=== PATIENT | male | born 1995 | race Caucasian/White ===

== ENCOUNTER 2017-03-06 11:48 | Emergency (ER) | payer BC ==
[2017-03-06] MEDS: ONDANSETRON 4 MG INJ IV ×2 (12:42→13:23)
[2017-03-06] MEDS: FAMOTIDINE 20 MG INJ IV (12:42)
[2017-03-06] MEDS: SOD CHLORIDE 0.9% 1,000 ML IV (12:44)
[2017-03-06] MEDS: LIDOCAINE/MYLANTA 40 ML BTL PO (12:49)
[2017-03-06 13:12] LABS: ADD MAN DIFF? NO
[2017-03-06 13:15] LABS: BASOPHILS % 0.4 % (0.0-2.0); EOSINOPHILS % 0.3 % (0.0-7.0); HEMATOCRIT 49.9 % (42.0-52.0); HEMOGLOBIN 17.1 g/dl (14.0-18.0); LYMPHOCYTES # 1.1 10^3/ul (0.8-2.9); LYMPHOCYTES % 11.3 % (18.0-55.0); MEAN CORPUSCULAR HEMOGLOBIN 29.4 pg (29.0-33.0); MEAN CORPUSCULAR HGB CONC 34.3 g/dl (32.0-37.0); MEAN CORPUSCULAR VOLUME 85.7 fl (72.0-104.0); MEAN PLATELET VOLUME 10.3 fl (7.4-10.4); MONOCYTE # 0.3 10^3/ul (0.3-0.9); MONOCYTES % 3.5 % (0.0-13.0); NEUTROPHIL # 8.1 10^3/ul (1.6-7.5); NEUTROPHILS % 83.8 % (30.0-74.0); PLATELET COUNT 257 10^3/UL (140-415); RED BLOOD COUNT 5.82 10^6/ul (4.70-6.10); RED CELL DISTRIBUTION WIDTH 11.9 % (11.5-14.5)
[2017-03-06 13:15] LABS: WHITE BLOOD COUNT 9.7 10^3/ul (4.8-10.8)
[2017-03-06 13:22] LABS: ADD UMIC NO; UR ASCORBIC ACID NEGATIVE (NEGATIVE); UR BILIRUBIN (Dip) NEGATIVE (NEGATIVE); UR BLOOD (Dip) NEGATIVE (NEGATIVE); UR CLARITY CLEAR (CLEAR); UR COLOR YELLOW (YELLOW); UR GLUCOSE (Dip) NEGATIVE (NEGATIVE); UR KETONES (Dip) NEGATIVE (NEGATIVE); UR LEUKOCYTE ESTERASE (Dip) NEGATIVE Leu/ul (NEGATIVE); UR NITRITE (Dip) NEGATIVE (NEGATIVE); UR SPECIFIC GRAVITY (Dip) 1.024 (1.003-1.030); UR TOTAL PROTEIN (Dip) NEGATIVE (NEGATIVE); UR UROBILINOGEN (Dip) NEGATIVE (NEGATIVE)
[2017-03-06] MEDS: HYDROmorphONE 1 MG/ML SYG IV (13:23)
[2017-03-06 13:33] LABS: ALANINE AMINOTRANSFERASE 87 IU/L (13-69); ALBUMIN 5.2 g/dl (3.3-4.9); ALBUMIN/GLOBULIN RATIO 1.67; ALKALINE PHOSPHATASE 91 IU/L (42-121); ANION GAP 23 (8-16); ASPARTATE AMINO TRANSFERASE 41 IU/L (15-46); BILIRUBIN,INDIRECT 1.1 mg/dl (0-1.1); BILIRUBIN,TOTAL 1.1 mg/dl (0.2-1.3); BLOOD UREA NITROGEN 13 mg/dl (7-20); CALCIUM 9.8 mg/dl (8.4-10.2); CARBON DIOXIDE 24 mmol/L (21-31); CHLORIDE 103 mmol/L (97-110); CREATININE 0.86 mg/dl (0.61-1.24); GLUCOSE 137 mg/dl (70-220); LIPASE 526 U/L (23-300); POTASSIUM 4.2 mmol/L (3.5-5.1); SODIUM 146 mmol/L (135-144); TOTAL PROTEIN 8.3 g/dl (6.1-8.1)
[2017-03-06] MEDS: METOCLOPRAMIDE 10 MG INJ IV (14:53)
[2017-03-06] MEDS: DIPHENHYDRAMINE 50 MG INJ IV (14:54)
== END 2017-03-06 15:23 | disposition home or self-care (01) ==
LOC: FTE 11:48
DX: R10.13 Epigastric pain (principal); R10.11 Right upper quadrant pain; E66.01 Morbid (severe) obesity due to excess calories; R11.2 Nausea with vomiting, unspecified
CPT/HCPCS: 36415; 74176; 80053; 81003; 83690; 85025; 96374; 96375; 96376; 99285-25

== ENCOUNTER 2017-03-08 06:37 | Observation (INO) | payer BC ==
[2017-03-08] MEDS: METOCLOPRAMIDE 10 MG INJ IV ×2 (08:07→17:53)
[2017-03-08] MEDS: FAMOTIDINE 20 MG INJ IV ×2 (08:07→20:49)
[2017-03-08] MEDS: HYDROmorphONE 1 MG/ML SYG IV (08:07)
[2017-03-08] MEDS: SOD CHLORIDE 0.9% 1,000 ML IV ×3 (08:08→15:05)
[2017-03-08 08:28] LABS: ADD MAN DIFF? NO
[2017-03-08 08:39] LABS: ADD UMIC YES; UR ASCORBIC ACID NEGATIVE (NEGATIVE); UR BILIRUBIN (Dip) NEGATIVE (NEGATIVE); UR BLOOD (Dip) NEGATIVE (NEGATIVE); UR CLARITY CLEAR (CLEAR); UR COLOR YELLOW (YELLOW); UR GLUCOSE (Dip) NEGATIVE (NEGATIVE); UR KETONES (Dip) 1+ mg/dL (NEGATIVE); UR LEUKOCYTE ESTERASE (Dip) NEGATIVE Leu/ul (NEGATIVE); UR MUCUS FEW /HPF (NONE SEEN); UR NITRITE (Dip) NEGATIVE (NEGATIVE); UR RBC 1 /HPF (0-5); UR TOTAL PROTEIN (Dip) 1+ mg/dl (NEGATIVE); UR UROBILINOGEN (Dip) 2+ mg/dL (NEGATIVE); UR WBC 3 /HPF (0-5)
[2017-03-08 08:40] LABS: WHITE BLOOD COUNT 10.7 10^3/ul (4.8-10.8)
[2017-03-08 08:40] LABS: BASOPHILS % 0.4 % (0.0-2.0); EOSINOPHILS % 0.3 % (0.0-7.0); HEMATOCRIT 49.5 % (42.0-52.0); HEMOGLOBIN 16.9 g/dl (14.0-18.0); LYMPHOCYTES # 1.3 10^3/ul (0.8-2.9); LYMPHOCYTES % 12.1 % (18.0-55.0); MEAN CORPUSCULAR HEMOGLOBIN 29.2 pg (29.0-33.0); MEAN CORPUSCULAR HGB CONC 34.1 g/dl (32.0-37.0); MEAN CORPUSCULAR VOLUME 85.5 fl (72.0-104.0); MEAN PLATELET VOLUME 10.1 fl (7.4-10.4); MONOCYTE # 0.8 10^3/ul (0.3-0.9); MONOCYTES % 7.5 % (0.0-13.0); NEUTROPHIL # 8.5 10^3/ul (1.6-7.5); NEUTROPHILS % 79.2 % (30.0-74.0); PLATELET COUNT 272 10^3/UL (140-415); RED BLOOD COUNT 5.79 10^6/ul (4.70-6.10); RED CELL DISTRIBUTION WIDTH 12.1 % (11.5-14.5)
[2017-03-08 08:53] LABS: ALANINE AMINOTRANSFERASE 84 IU/L (13-69); ALBUMIN/GLOBULIN RATIO 1.35; ALKALINE PHOSPHATASE 82 IU/L (42-121); AMYLASE 180 U/L (11-123); ANION GAP 21 (8-16); ASPARTATE AMINO TRANSFERASE 39 IU/L (15-46); BLOOD UREA NITROGEN 20 mg/dl (7-20); CALCIUM 10.1 mg/dl (8.4-10.2); CARBON DIOXIDE 29 mmol/L (21-31); CHLORIDE 99 mmol/L (97-110); CREATININE 1.04 mg/dl (0.61-1.24); GLUCOSE 124 mg/dl (70-220); LIPASE 560 U/L (23-300); POTASSIUM 3.7 mmol/L (3.5-5.1); SODIUM 145 mmol/L (135-144); TOTAL PROTEIN 8.7 g/dl (6.1-8.1)
[2017-03-08] MEDS: ONDANSETRON 4 MG INJ IV ×2 (10:15→11:14)
[2017-03-08] MEDS: LORAZEPAM 2 MG INJ IV (10:30)
[2017-03-08] MEDS: LIDOCAINE/MYLANTA 40 ML BTL PO (11:15)
[2017-03-08] MEDS: BELLADONNA/PHENOBARBITAL TAB PO (11:15)
[2017-03-08] MEDS ORDERED: ACETAMINOPHEN 325 MG TAB PO (13:00)
[2017-03-08] MEDS ORDERED: ONDANSETRON 4 MG INJ IV ×2 (13:00→14:00)
[2017-03-08] MEDS: HYDROCODONE/APAP (5/325) TAB PO (15:15)
== END 2017-03-08 22:05 | disposition left against medical advice (07) ==
LOC: FTE 06:37 → MS2 12:46
DX: R10.13 Epigastric pain (principal); R11.2 Nausea with vomiting, unspecified; Z90.49 Acquired absence of other specified parts of digestive tract
CPT/HCPCS: 36415; 76705; 80053; 81001; 82150; 83690; 85025; 96361; 96374; 96375; 96376; 99285-25

== ENCOUNTER 2017-04-02 13:51 | Inpatient (IN) | payer BC ==
[2017-04-02] MEDS ORDERED: ACETAMINOPHEN 325 MG TAB PO (15:00)
[2017-04-02] MEDS ORDERED: NACL 0.9% 3 ML SYG IV (15:00)
[2017-04-02] MEDS ORDERED: ONDANSETRON 4 MG TAB PO (15:30)
[2017-04-02] MEDS: SOD CHLORIDE 0.9% 1,000 ML IV ×2 (15:47→22:56)
[2017-04-02] MEDS: ONDANSETRON 4 MG INJ IV (16:00)
[2017-04-02] MEDS ORDERED: traMADol 50 MG TAB PO (16:00)
[2017-04-02] MEDS: morphine 2 MG INJ IV (16:01)
[2017-04-02] MEDS: SUCRALFATE (100 MG/ML) 10ML CUP PO ×2 (18:26→21:11)
[2017-04-02] MEDS: PANTOPRAZOLE (EC) 40 MG TAB PO (18:26)
[2017-04-03 05:53] LABS: ADD MAN DIFF? NO
[2017-04-03 06:03] LABS: BASOPHILS % 0.3 % (0.0-2.0); EOSINOPHILS # 0.1 10^3/ul (0.0-0.5); EOSINOPHILS % 0.8 % (0.0-7.0); HEMATOCRIT 43.8 % (42.0-52.0); HEMOGLOBIN 14.9 g/dl (14.0-18.0); LYMPHOCYTES # 1.5 10^3/ul (0.8-2.9); LYMPHOCYTES % 24.7 % (15.0-51.0); MEAN CORPUSCULAR HEMOGLOBIN 29.3 pg (29.0-33.0); MEAN CORPUSCULAR VOLUME 86.2 fl (82.0-101.0); MEAN PLATELET VOLUME 9.9 fl (7.4-10.4); MONOCYTE # 0.6 10^3/ul (0.3-0.9); MONOCYTES % 9.6 % (0.0-11.0); NEUTROPHIL # 3.8 10^3/ul (1.6-7.5); NEUTROPHILS % 63.9 % (39.0-77.0); PLATELET COUNT 213 10^3/UL (140-415); RED BLOOD COUNT 5.08 10^6/ul (4.70-6.10); RED CELL DISTRIBUTION WIDTH 11.9 % (11.5-14.5)
[2017-04-03] MEDS: PANTOPRAZOLE (EC) 40 MG TAB PO ×2 (06:11→17:28)
[2017-04-03] MEDS: SOD CHLORIDE 0.9% 1,000 ML IV ×2 (06:12→15:00)
[2017-04-03 06:33] LABS: ALANINE AMINOTRANSFERASE 70 IU/L (13-69); ALBUMIN 4.2 g/dl (3.3-4.9); ALKALINE PHOSPHATASE 67 IU/L (42-121); ASPARTATE AMINO TRANSFERASE 23 IU/L (15-46); BILIRUBIN,INDIRECT 1.9 mg/dl (0-1.1); BILIRUBIN,TOTAL 1.9 mg/dl (0.2-1.3); TOTAL PROTEIN 6.7 g/dl (6.1-8.1)
[2017-04-03 06:37] LABS: ANION GAP 16 (8-16); BLOOD UREA NITROGEN 12 mg/dl (7-20); CALCIUM 9.3 mg/dl (8.4-10.2); CARBON DIOXIDE 28 mmol/L (21-31); CHLORIDE 103 mmol/L (97-110); CREATININE 0.91 mg/dl (0.61-1.24); GLUCOSE 80 mg/dl (70-220); MAGNESIUM 1.7 mg/dl (1.7-2.5); PHOSPHORUS 3.3 mg/dl (2.5-4.9); POTASSIUM 3.8 mmol/L (3.5-5.1); SODIUM 143 mmol/L (135-144)
[2017-04-03] MEDS: SUCRALFATE (100 MG/ML) 10ML CUP PO ×3 (08:27→17:28)
[2017-04-03] MEDS: ENOXAPARIN 40 MG/0.4 ML SYG SC (08:29)
[2017-04-04] MEDS ORDERED: INFLUENZA VIRUS VACCINE 0.5 ML (DISPENSING) IM* (09:00)
== END 2017-04-03 18:24 | disposition home or self-care (01) | DRG 392 ==
LOC: PP2 13:51
DX: R11.2 Nausea with vomiting, unspecified (principal); F12.90 Cannabis use, unspecified, uncomplicated; K29.70 Gastritis, unspecified, without bleeding
CPT/HCPCS: 80048; 80076; 83735; 84100; 84443; 85025

== ENCOUNTER 2017-05-23 21:20 | Inpatient (IN) | payer BC ==
[2017-05-23] MEDS ORDERED: DOCUSATE SODIUM 100 MG CAP PO (22:00)
[2017-05-23] MEDS ORDERED: ACETAMINOPHEN 325 MG TAB PO (22:00)
[2017-05-23] MEDS ORDERED: BISACODYL (EC) 5 MG TAB PO (22:00)
[2017-05-23] MEDS ORDERED: NACL 0.9% 3 ML SYG IV (22:00)
[2017-05-23 22:17] LABS: ADD MAN DIFF? NO
[2017-05-23 22:19] LABS: BASOPHILS % 0.2 % (0.0-2.0); HEMATOCRIT 46.8 % (42.0-52.0); HEMOGLOBIN 16.2 g/dl (14.0-18.0); LYMPHOCYTES # 0.7 10^3/ul (0.8-2.9); LYMPHOCYTES % 6.7 % (15.0-51.0); MEAN CORPUSCULAR HEMOGLOBIN 29.1 pg (29.0-33.0); MEAN CORPUSCULAR HGB CONC 34.6 g/dl (32.0-37.0); MEAN PLATELET VOLUME 9.4 fl (7.4-10.4); MONOCYTE # 0.3 10^3/ul (0.3-0.9); NEUTROPHIL # 9.2 10^3/ul (1.6-7.5); NEUTROPHILS % 89.8 % (39.0-77.0); PLATELET COUNT 240 10^3/UL (140-415); RED BLOOD COUNT 5.57 10^6/ul (4.70-6.10); RED CELL DISTRIBUTION WIDTH 12.4 % (11.5-14.5)
[2017-05-23 22:19] LABS: WHITE BLOOD COUNT 10.2 10^3/ul (4.8-10.8)
[2017-05-23] MEDS: SOD CHLORIDE 0.9% 1,000 ML IV (22:23)
[2017-05-23] MEDS: morphine 2 MG INJ IV (22:23)
[2017-05-23] MEDS: METOCLOPRAMIDE 10 MG INJ IV (22:27)
[2017-05-23 22:41] LABS: ALANINE AMINOTRANSFERASE 79 IU/L (13-69); ALBUMIN 5.2 g/dl (3.3-4.9); ALBUMIN/GLOBULIN RATIO 1.48; ALKALINE PHOSPHATASE 81 IU/L (42-121); ANION GAP 21 (8-16); ASPARTATE AMINO TRANSFERASE 32 IU/L (15-46); BILIRUBIN,INDIRECT 1.8 mg/dl (0-1.1); BILIRUBIN,TOTAL 1.8 mg/dl (0.2-1.3); BLOOD UREA NITROGEN 12 mg/dl (7-20); CARBON DIOXIDE 27 mmol/L (21-31); CHLORIDE 103 mmol/L (97-110); GLUCOSE 126 mg/dl (70-220); POTASSIUM 4.7 mmol/L (3.5-5.1); SODIUM 146 mmol/L (135-144); TOTAL PROTEIN 8.7 g/dl (6.1-8.1)
[2017-05-24] MEDS: ONDANSETRON 4 MG INJ IV (01:41)
[2017-05-24 05:16] LABS: ADD MAN DIFF? NO
[2017-05-24 05:19] LABS: BASOPHILS % 0.1 % (0.0-2.0); HEMATOCRIT 45.2 % (42.0-52.0); HEMOGLOBIN 15.6 g/dl (14.0-18.0); LYMPHOCYTES # 0.8 10^3/ul (0.8-2.9); LYMPHOCYTES % 8.8 % (15.0-51.0); MEAN CORPUSCULAR HGB CONC 34.5 g/dl (32.0-37.0); MONOCYTE # 0.6 10^3/ul (0.3-0.9); MONOCYTES % 6.5 % (0.0-11.0); NEUTROPHILS % 84.2 % (39.0-77.0); PLATELET COUNT 249 10^3/UL (140-415); RED BLOOD COUNT 5.38 10^6/ul (4.70-6.10); RED CELL DISTRIBUTION WIDTH 12.6 % (11.5-14.5)
[2017-05-24 05:19] LABS: WHITE BLOOD COUNT 9.6 10^3/ul (4.8-10.8)
[2017-05-24 05:41] LABS: ALANINE AMINOTRANSFERASE 69 IU/L (13-69); ALBUMIN/GLOBULIN RATIO 1.85; ALKALINE PHOSPHATASE 66 IU/L (42-121); ANION GAP 23 (8-16); ASPARTATE AMINO TRANSFERASE 24 IU/L (15-46); BILIRUBIN,INDIRECT 1.7 mg/dl (0-1.1); BILIRUBIN,TOTAL 1.7 mg/dl (0.2-1.3); BLOOD UREA NITROGEN 14 mg/dl (7-20); CALCIUM 9.8 mg/dl (8.4-10.2); CARBON DIOXIDE 26 mmol/L (21-31); CHLORIDE 104 mmol/L (97-110); CREATININE 0.92 mg/dl (0.61-1.24); GLUCOSE 124 mg/dl (70-220); MAGNESIUM 1.7 mg/dl (1.7-2.5); POTASSIUM 4.1 mmol/L (3.5-5.1); SODIUM 149 mmol/L (135-144); TOTAL PROTEIN 7.7 g/dl (6.1-8.1)
[2017-05-24] MEDS: PANTOPRAZOLE 40 MG INJ IV (05:41)
[2017-05-24] MEDS: SOD CHLORIDE 0.9% 1,000 ML IV (07:29)
[2017-05-24] MEDS: METOCLOPRAMIDE 10 MG INJ IV (07:47)
[2017-05-24] MEDS: morphine 2 MG INJ IV (07:48)
[2017-05-24 08:06] LABS: LIPASE 37 U/L (23-300)
[2017-05-24] MEDS ORDERED: NON-FORMULARY/PATIENT OWN MED (Omeprazole* 20 MG) PO (09:00)
[2017-05-24 09:31] LABS: ADD UMIC YES; UR ASCORBIC ACID 40 mg/dL (NEGATIVE); UR BILIRUBIN (Dip) NEGATIVE (NEGATIVE); UR BLOOD (Dip) NEGATIVE (NEGATIVE); UR CLARITY SLIGHTLY CLOUDY (CLEAR); UR COLOR YELLOW (YELLOW); UR GLUCOSE (Dip) NEGATIVE (NEGATIVE); UR KETONES (Dip) 2+ mg/dL (NEGATIVE); UR LEUKOCYTE ESTERASE (Dip) NEGATIVE Leu/ul (NEGATIVE); UR MUCUS MANY /HPF (NONE SEEN); UR NITRITE (Dip) NEGATIVE (NEGATIVE); UR RBC 11 /HPF (0-5); UR SPECIFIC GRAVITY (Dip) 1.034 (1.003-1.030); UR TOTAL PROTEIN (Dip) 2+ mg/dl (NEGATIVE); UR UROBILINOGEN (Dip) 1+ mg/dL (NEGATIVE); UR WBC 16 /HPF (0-5)
[2017-05-24 09:33] LABS: AMPHETAMINE/METHAMPHETAMINE Negative (NEGATIVE); BARBITURATES Negative (NEGATIVE); BENZODIAZEPINES Negative (NEGATIVE); CANNABINOIDS Positive (NEGATIVE); COCAINE Negative (NEGATIVE); OPIATES Positive (NEGATIVE)
== END 2017-05-24 18:55 | disposition home or self-care (01) | DRG 897 ==
LOC: MS1 21:20
DX: F12.188 Cannabis abuse with other cannabis-induced disorder (principal); F41.9 Anxiety disorder, unspecified; R11.2 Nausea with vomiting, unspecified
CPT/HCPCS: 80053; 80307; 81001; 83690; 83735; 85025

== ENCOUNTER 2017-06-08 15:01 | Emergency (ER) | payer BC ==
[2017-06-08] MEDS: ONDANSETRON (ODT) 4 MG TAB ODT (16:08)
[2017-06-08] MEDS: LIDOCAINE/MYLANTA 40 ML BTL PO (16:08)
[2017-06-08 16:33] LABS: ADD MAN DIFF? NO
[2017-06-08] MEDS: ONDANSETRON 4 MG INJ IV (16:33)
[2017-06-08] MEDS: METOCLOPRAMIDE 10 MG INJ IV (16:33)
[2017-06-08] MEDS: SOD CHLORIDE 0.9% 1,000 ML IV (16:33)
[2017-06-08 16:37] LABS: BASOPHILS % 0.3 % (0.0-2.0); HEMATOCRIT 48.5 % (42.0-52.0); HEMOGLOBIN 16.7 g/dl (14.0-18.0); LYMPHOCYTES # 0.8 10^3/ul (0.8-2.9); LYMPHOCYTES % 7.9 % (15.0-51.0); MEAN CORPUSCULAR HEMOGLOBIN 29.3 pg (29.0-33.0); MEAN CORPUSCULAR HGB CONC 34.4 g/dl (32.0-37.0); MEAN CORPUSCULAR VOLUME 85.1 fl (82.0-101.0); MONOCYTE # 0.3 10^3/ul (0.3-0.9); MONOCYTES % 3.1 % (0.0-11.0); NEUTROPHIL # 9.3 10^3/ul (1.6-7.5); NEUTROPHILS % 88.2 % (39.0-77.0); PLATELET COUNT 259 10^3/UL (140-415); RED CELL DISTRIBUTION WIDTH 12.6 % (11.5-14.5)
[2017-06-08 16:37] LABS: WHITE BLOOD COUNT 10.6 10^3/ul (4.8-10.8)
[2017-06-08] MEDS: morphine 4 MG/ML VIAL IV (16:43)
[2017-06-08] MEDS: FAMOTIDINE 20 MG INJ IV (16:50)
[2017-06-08 16:51] LABS: ADD UMIC YES; UR ASCORBIC ACID NEGATIVE (NEGATIVE); UR BILIRUBIN (Dip) NEGATIVE (NEGATIVE); UR BLOOD (Dip) NEGATIVE (NEGATIVE); UR CLARITY SLIGHTLY CLOUDY (CLEAR); UR COLOR YELLOW (YELLOW); UR GLUCOSE (Dip) NEGATIVE (NEGATIVE); UR KETONES (Dip) TRACE mg/dL (NEGATIVE); UR LEUKOCYTE ESTERASE (Dip) NEGATIVE Leu/ul (NEGATIVE); UR MUCUS MANY /HPF (NONE SEEN); UR NITRITE (Dip) NEGATIVE (NEGATIVE); UR RBC 2 /HPF (0-5); UR SPECIFIC GRAVITY (Dip) 1.024 (1.003-1.030); UR TOTAL PROTEIN (Dip) 1+ mg/dl (NEGATIVE); UR UROBILINOGEN (Dip) NEGATIVE (NEGATIVE); UR WBC 1 /HPF (0-5)
[2017-06-08 17:01] LABS: ALANINE AMINOTRANSFERASE 84 IU/L (13-69); ALBUMIN 5.2 g/dl (3.3-4.9); ALBUMIN/GLOBULIN RATIO 1.67; ALKALINE PHOSPHATASE 83 IU/L (42-121); AMYLASE 112 U/L (11-123); ANION GAP 21 (8-16); ASPARTATE AMINO TRANSFERASE 40 IU/L (15-46); BILIRUBIN,INDIRECT 1.1 mg/dl (0-1.1); BILIRUBIN,TOTAL 1.1 mg/dl (0.2-1.3); BLOOD UREA NITROGEN 10 mg/dl (7-20); CALCIUM 10.3 mg/dl (8.4-10.2); CARBON DIOXIDE 28 mmol/L (21-31); CHLORIDE 105 mmol/L (97-110); CREATININE 0.91 mg/dl (0.61-1.24); GLUCOSE 129 mg/dl (70-220); LIPASE 263 U/L (23-300); POTASSIUM 4.2 mmol/L (3.5-5.1); SODIUM 150 mmol/L (135-144); TOTAL PROTEIN 8.3 g/dl (6.1-8.1)
[2017-06-08 17:18] LABS: BARBITURATES Negative (NEGATIVE); OPIATES Positive (NEGATIVE)
[2017-06-08 17:24] LABS: AMPHETAMINE/METHAMPHETAMINE Negative (NEGATIVE); BENZODIAZEPINES Positive (NEGATIVE); CANNABINOIDS Positive (NEGATIVE); COCAINE Negative (NEGATIVE)
== END 2017-06-08 18:01 | disposition home or self-care (01) ==
LOC: FTE 15:01
DX: K29.70 Gastritis, unspecified, without bleeding (principal)
CPT/HCPCS: 80053; 80307; 81001; 82150; 83690; 85025; 96374; 96375; 99284-25

== ENCOUNTER 2017-08-21 21:43 | Emergency (ER) | payer BC ==
[2017-08-21] MEDS: FAMOTIDINE 20 MG INJ IV (22:55)
[2017-08-21] MEDS: ONDANSETRON 4 MG INJ IV (22:55)
[2017-08-21] MEDS: SOD CHLORIDE 0.9% 1,000 ML IV (22:55)
[2017-08-21] MEDS: morphine 4 MG/ML VIAL IV (22:55)
[2017-08-21 23:19] LABS: ADD MAN DIFF? NO
[2017-08-21 23:20] LABS: WHITE BLOOD COUNT 10.1 10^3/ul (4.8-10.8)
[2017-08-21 23:20] LABS: BASOPHILS % 0.3 % (0.0-2.0); EOSINOPHILS % 0.1 % (0.0-7.0); HEMATOCRIT 47.9 % (42.0-52.0); HEMOGLOBIN 16.7 g/dl (14.0-18.0); LYMPHOCYTES # 1.9 10^3/ul (0.8-2.9); LYMPHOCYTES % 18.8 % (15.0-51.0); MEAN CORPUSCULAR HEMOGLOBIN 29.6 pg (29.0-33.0); MEAN CORPUSCULAR HGB CONC 34.9 g/dl (32.0-37.0); MEAN CORPUSCULAR VOLUME 84.8 fl (82.0-101.0); MEAN PLATELET VOLUME 9.9 fl (7.4-10.4); MONOCYTE # 0.9 10^3/ul (0.3-0.9); MONOCYTES % 8.8 % (0.0-11.0); NEUTROPHIL # 7.2 10^3/ul (1.6-7.5); NEUTROPHILS % 71.6 % (39.0-77.0); PLATELET COUNT 259 10^3/UL (140-415); RED BLOOD COUNT 5.65 10^6/ul (4.70-6.10)
[2017-08-21 23:39] LABS: ALANINE AMINOTRANSFERASE 63 IU/L (13-69); ALBUMIN 4.9 g/dl (3.3-4.9); ALBUMIN/GLOBULIN RATIO 1.48; ALKALINE PHOSPHATASE 79 IU/L (42-121); ANION GAP 16 (8-16); ASPARTATE AMINO TRANSFERASE 26 IU/L (15-46); BILIRUBIN,INDIRECT 2.4 mg/dl (0-1.1); BILIRUBIN,TOTAL 2.4 mg/dl (0.2-1.3); BLOOD UREA NITROGEN 13 mg/dl (7-20); CALCIUM 9.9 mg/dl (8.4-10.2); CARBON DIOXIDE 30 mmol/L (21-31); CHLORIDE 101 mmol/L (97-110); CREATININE 0.94 mg/dl (0.61-1.24); GLUCOSE 123 mg/dl (70-220); LIPASE 1318 U/L (23-300); POTASSIUM 3.7 mmol/L (3.5-5.1); SODIUM 143 mmol/L (135-144); TOTAL PROTEIN 8.2 g/dl (6.1-8.1)
[2017-08-22] MEDS: HYDROmorphONE 0.5 MG/0.5 ML SYG IV (00:06)
[2017-08-22] MEDS: SOD CHLORIDE 0.9% 100 ML (01:11)
[2017-08-22] MEDS: IOHEXOL 300MG/ML 150 ML BTL (01:11)
[2017-08-22 02:14] LABS: ADD UMIC NO; UR ASCORBIC ACID NEGATIVE (NEGATIVE); UR BILIRUBIN (Dip) NEGATIVE (NEGATIVE); UR BLOOD (Dip) NEGATIVE (NEGATIVE); UR CLARITY CLEAR (CLEAR); UR COLOR YELLOW (YELLOW); UR GLUCOSE (Dip) NEGATIVE (NEGATIVE); UR KETONES (Dip) 2+ mg/dL (NEGATIVE); UR LEUKOCYTE ESTERASE (Dip) NEGATIVE Leu/ul (NEGATIVE); UR NITRITE (Dip) NEGATIVE (NEGATIVE); UR SPECIFIC GRAVITY (Dip) 1.024 (1.003-1.030); UR TOTAL PROTEIN (Dip) NEGATIVE (NEGATIVE); UR UROBILINOGEN (Dip) 1+ mg/dL (NEGATIVE)
== END 2017-08-22 02:20 | disposition left against medical advice (07) ==
LOC: FTE 21:43
DX: K85.90 Acute pancreatitis without necrosis or infection, unspecified (principal); R10.2 Pelvic and perineal pain
CPT/HCPCS: 36415; 74177; 76705; 80053; 81003; 83690; 85025; 96374; 96375; 99285-25

== ENCOUNTER 2017-11-02 11:39 | Day surgery (SDC) | payer BC | END 2017-11-02 16:02 | disposition home or self-care (01) | LOC: GIL 11:39 | DX: K29.70 Gastritis, unspecified, without bleeding (principal); B96.81 Helicobacter pylori [H. pylori] as the cause of diseases classified elsewhere; F17.200 Nicotine dependence, unspecified, uncomplicated | CPT/HCPCS: 43239; 88305; 88312 ==

== ENCOUNTER 2017-11-09 15:04 | Emergency (ER) | payer BC ==
[2017-11-09] MEDS: ONDANSETRON (ODT) 4 MG TAB ODT (15:46)
[2017-11-09] MEDS: LIDOCAINE/MYLANTA 40 ML BTL PO (15:46)
== END 2017-11-09 17:36 | disposition home or self-care (01) ==
LOC: FTE 15:04
DX: K29.50 Unspecified chronic gastritis without bleeding (principal); B96.81 Helicobacter pylori [H. pylori] as the cause of diseases classified elsewhere; F17.210 Nicotine dependence, cigarettes, uncomplicated
CPT/HCPCS: 99283; Z7502

== ENCOUNTER 2017-12-29 11:11 | Emergency (ER) | payer BC ==
[2017-12-29] MEDS: ONDANSETRON 4 MG INJ IV (11:58)
[2017-12-29] MEDS: FAMOTIDINE 20 MG INJ IV (11:58)
[2017-12-29] MEDS: HYDROmorphONE 1 MG/ML SYG IV (11:58)
[2017-12-29] MEDS: LIDOCAINE/MYLANTA 40 ML BTL PO (11:58)
[2017-12-29] MEDS: SOD CHLORIDE 0.9% 1,000 ML IV ×2 (11:59→13:54)
[2017-12-29 12:01] LABS: ADD MAN DIFF? NO
[2017-12-29 12:09] LABS: WHITE BLOOD COUNT 10.1 10^3/ul (4.8-10.8)
[2017-12-29 12:09] LABS: BASOPHILS % 0.3 % (0.0-2.0); HEMATOCRIT 49.8 % (42.0-52.0); LYMPHOCYTES # 0.7 10^3/ul (0.8-2.9); LYMPHOCYTES % 7.1 % (15.0-51.0); MEAN CORPUSCULAR HEMOGLOBIN 29.4 pg (29.0-33.0); MEAN CORPUSCULAR HGB CONC 34.1 g/dl (32.0-37.0); MEAN CORPUSCULAR VOLUME 86.2 fl (82.0-101.0); MONOCYTE # 0.3 10^3/ul (0.3-0.9); NEUTROPHIL # 9.1 10^3/ul (1.6-7.5); NEUTROPHILS % 89.3 % (39.0-77.0); PLATELET COUNT 263 10^3/UL (140-415); RED BLOOD COUNT 5.78 10^6/ul (4.70-6.10)
[2017-12-29 12:18] LABS: ADD UMIC YES; UR ASCORBIC ACID 40 mg/dL (NEGATIVE); UR BILIRUBIN (Dip) NEGATIVE (NEGATIVE); UR BLOOD (Dip) NEGATIVE (NEGATIVE); UR CLARITY CLOUDY (CLEAR); UR COLOR YELLOW (YELLOW); UR GLUCOSE (Dip) NEGATIVE (NEGATIVE); UR KETONES (Dip) 1+ mg/dL (NEGATIVE); UR LEUKOCYTE ESTERASE (Dip) NEGATIVE Leu/ul (NEGATIVE); UR MUCUS MODERATE /HPF (NONE SEEN); UR NITRITE (Dip) NEGATIVE (NEGATIVE); UR RBC 2 /HPF (0-5); UR SPECIFIC GRAVITY (Dip) 1.029 (1.003-1.030); UR TOTAL PROTEIN (Dip) NEGATIVE (NEGATIVE); UR UROBILINOGEN (Dip) NEGATIVE (NEGATIVE); UR WBC 3 /HPF (0-5)
[2017-12-29 12:31] LABS: ALANINE AMINOTRANSFERASE 69 IU/L (13-69); ALBUMIN 5.2 g/dl (3.3-4.9); ALKALINE PHOSPHATASE 84 IU/L (42-121); ANION GAP 13 (5-13); ASPARTATE AMINO TRANSFERASE 36 IU/L (15-46); BILIRUBIN,INDIRECT 1.8 mg/dl (0-1.1); BILIRUBIN,TOTAL 1.8 mg/dl (0.2-1.3); BLOOD UREA NITROGEN 14 mg/dl (7-20); CALCIUM 10.1 mg/dl (8.4-10.2); CARBON DIOXIDE 24 mmol/L (21-31); CHLORIDE 107 mmol/L (97-110); CREATININE 0.74 mg/dl (0.61-1.24); Estimated GFR > 60 mL/min (>60); GLUCOSE 130 mg/dl (70-220); LIPASE 212 U/L (23-300); POTASSIUM 3.9 mmol/L (3.5-5.1); SODIUM 144 mmol/L (135-144); TOTAL PROTEIN 8.9 g/dl (6.1-8.1)
[2017-12-29] MEDS: METOCLOPRAMIDE 10 MG INJ IV (13:49)
[2017-12-29] MEDS: RANITIDINE 150 MG TAB PO (13:58)
[2017-12-29] MEDS: DEXAMETHASONE 4 MG/ML 1 ML INJ IV (16:04)
[2017-12-29] MEDS: PROMETHAZINE 25 MG TAB PO (16:04)
[2017-12-29] MEDS ORDERED: NS + KCL 20 MEQ 1,000 ML IV (16:56)
[2017-12-29] MEDS ORDERED: ONDANSETRON 4 MG INJ IV (16:57)
[2017-12-29] MEDS ORDERED: ONDANSETRON (ODT) 4 MG TAB ODT (17:31)
[2017-12-29] MEDS: ONDANSETRON (ODT) 4 MG TAB ODT (17:37)
== END 2017-12-29 17:40 | disposition home or self-care (01) ==
LOC: FTE 11:11
DX: K21.9 Gastro-esophageal reflux disease without esophagitis (principal)
CPT/HCPCS: 36415; 76705; 80053; 81001; 83690; 85025; 87086; 96374; 96375; 99285-25

== ENCOUNTER 2017-12-31 06:26 | Emergency (ER) | payer BC ==
[2017-12-31] MEDS: SOD CHLORIDE 0.9% 1,000 ML IV (06:53)
[2017-12-31] MEDS: ONDANSETRON 4 MG INJ IV (06:53)
[2017-12-31] MEDS: morphine 4 MG/ML VIAL IV (06:53)
[2017-12-31] MEDS: LIDOCAINE/MYLANTA 40 ML BTL PO (07:06)
[2017-12-31 07:08] LABS: ADD MAN DIFF? NO
[2017-12-31 07:14] LABS: ADD UMIC NO; BASOPHILS % 0.4 % (0.0-2.0); EOSINOPHILS # 0.1 10^3/ul (0.0-0.5); EOSINOPHILS % 0.9 % (0.0-7.0); HEMATOCRIT 47.8 % (42.0-52.0); HEMOGLOBIN 16.3 g/dl (14.0-18.0); LYMPHOCYTES % 21.8 % (15.0-51.0); MEAN CORPUSCULAR HEMOGLOBIN 29.7 pg (29.0-33.0); MEAN CORPUSCULAR HGB CONC 34.1 g/dl (32.0-37.0); MEAN CORPUSCULAR VOLUME 87.2 fl (82.0-101.0); MEAN PLATELET VOLUME 9.9 fl (7.4-10.4); MONOCYTE # 0.8 10^3/ul (0.3-0.9); MONOCYTES % 8.9 % (0.0-11.0); NEUTROPHIL # 6.1 10^3/ul (1.6-7.5); NEUTROPHILS % 67.6 % (39.0-77.0); PLATELET COUNT 236 10^3/UL (140-415); RED BLOOD COUNT 5.48 10^6/ul (4.70-6.10); RED CELL DISTRIBUTION WIDTH 12.5 % (11.5-14.5); UR ASCORBIC ACID NEGATIVE (NEGATIVE); UR BILIRUBIN (Dip) NEGATIVE (NEGATIVE); UR BLOOD (Dip) NEGATIVE (NEGATIVE); UR CLARITY SLIGHTLY CLOUDY (CLEAR); UR COLOR YELLOW (YELLOW); UR GLUCOSE (Dip) NEGATIVE (NEGATIVE); UR KETONES (Dip) TRACE mg/dL (NEGATIVE); UR LEUKOCYTE ESTERASE (Dip) NEGATIVE Leu/ul (NEGATIVE); UR MUCUS MODERATE /HPF (NONE SEEN); UR NITRITE (Dip) NEGATIVE (NEGATIVE); UR RBC 1 /HPF (0-5); UR SPECIFIC GRAVITY (Dip) 1.021 (1.003-1.030); UR TOTAL PROTEIN (Dip) NEGATIVE (NEGATIVE); UR UROBILINOGEN (Dip) NEGATIVE (NEGATIVE); UR WBC 3 /HPF (0-5)
[2017-12-31] MEDS: FAMOTIDINE 20 MG INJ IV (07:47)
[2017-12-31] MEDS: HYDROmorphONE 0.5 MG/0.5 ML SYG IV (07:47)
[2017-12-31 08:17] LABS: ALANINE AMINOTRANSFERASE 62 IU/L (13-69); ALBUMIN 4.7 g/dl (3.3-4.9); ALBUMIN/GLOBULIN RATIO 1.42; ALKALINE PHOSPHATASE 69 IU/L (42-121); ANION GAP 12 (5-13); ASPARTATE AMINO TRANSFERASE 30 IU/L (15-46); BILIRUBIN,INDIRECT 1.8 mg/dl (0-1.1); BILIRUBIN,TOTAL 1.8 mg/dl (0.2-1.3); BLOOD UREA NITROGEN 17 mg/dl (7-20); CALCIUM 9.4 mg/dl (8.4-10.2); CARBON DIOXIDE 26 mmol/L (21-31); CHLORIDE 104 mmol/L (97-110); CREATININE 0.88 mg/dl (0.61-1.24); Estimated GFR > 60 mL/min (>60); GLUCOSE 121 mg/dl (70-220); LIPASE 433 U/L (23-300); POTASSIUM 3.4 mmol/L (3.5-5.1); SODIUM 142 mmol/L (135-144)
== END 2017-12-31 09:28 | disposition home or self-care (01) ==
LOC: FTE 06:26
DX: R10.13 Epigastric pain (principal); R11.10 Vomiting, unspecified; Z87.11 Personal history of peptic ulcer disease
CPT/HCPCS: 36415; 80053; 81001; 81003; 83690; 85025; 96361; 96374; 96375; 99284-25

== ENCOUNTER 2018-01-11 16:07 | Emergency (ER) | payer BC ==
[2018-01-11] MEDS: SOD CHLORIDE 0.9% 1,000 ML IV ×2 (17:14)
[2018-01-11] MEDS: ONDANSETRON 4 MG INJ IV ×2 (17:14→18:34)
[2018-01-11] MEDS: LORAZEPAM 2 MG INJ IV (17:14)
[2018-01-11] MEDS: PANTOPRAZOLE 40 MG INJ IV (17:14)
[2018-01-11 17:20] LABS: ADD MAN DIFF? NO
[2018-01-11 17:26] LABS: WHITE BLOOD COUNT 9.3 10^3/ul (4.8-10.8)
[2018-01-11 17:26] LABS: BASOPHILS % 0.2 % (0.0-2.0); EOSINOPHILS % 0.4 % (0.0-7.0); HEMATOCRIT 47.4 % (42.0-52.0); HEMOGLOBIN 16.1 g/dl (14.0-18.0); LYMPHOCYTES # 0.9 10^3/ul (0.8-2.9); LYMPHOCYTES % 9.1 % (15.0-51.0); MEAN CORPUSCULAR HEMOGLOBIN 29.3 pg (29.0-33.0); MEAN CORPUSCULAR VOLUME 86.2 fl (82.0-101.0); MEAN PLATELET VOLUME 9.7 fl (7.4-10.4); MONOCYTE # 0.5 10^3/ul (0.3-0.9); NEUTROPHIL # 7.9 10^3/ul (1.6-7.5); NEUTROPHILS % 84.5 % (39.0-77.0); PLATELET COUNT 224 10^3/UL (140-415)
[2018-01-11 17:44] LABS: ALANINE AMINOTRANSFERASE 76 IU/L (13-69); ALBUMIN 4.7 g/dl (3.3-4.9); ALBUMIN/GLOBULIN RATIO 1.51; ALKALINE PHOSPHATASE 76 IU/L (42-121); ANION GAP 12 (5-13); ASPARTATE AMINO TRANSFERASE 39 IU/L (15-46); BLOOD UREA NITROGEN 12 mg/dl (7-20); CALCIUM 9.9 mg/dl (8.4-10.2); CARBON DIOXIDE 27 mmol/L (21-31); CHLORIDE 105 mmol/L (97-110); CREATININE 0.71 mg/dl (0.61-1.24); Estimated GFR > 60 mL/min (>60); GLUCOSE 124 mg/dl (70-220); LIPASE 32 U/L (23-300); POTASSIUM 3.8 mmol/L (3.5-5.1); SODIUM 144 mmol/L (135-144); TOTAL PROTEIN 7.8 g/dl (6.1-8.1)
[2018-01-11] MEDS: KETOROLAC 30 MG INJ IV (17:58)
[2018-01-11] MEDS: HALOPERIDOL 5 MG INJ IV (19:04)
== END 2018-01-11 19:20 | disposition home or self-care (01) ==
LOC: FTE 16:07
DX: R10.13 Epigastric pain (principal); R11.2 Nausea with vomiting, unspecified
CPT/HCPCS: 36415; 80053; 83690; 85025; 96374; 96375; 96376; 99284-25

== ENCOUNTER 2018-01-12 04:45 | Emergency (ER) | payer BC ==
[2018-01-12 05:25] LABS: ADD MAN DIFF? NO
[2018-01-12 05:27] LABS: WHITE BLOOD COUNT 11.1 10^3/ul (4.8-10.8)
[2018-01-12 05:27] LABS: ABNORMAL IP MESSAGE 1; BASOPHILS % 0.1 % (0.0-2.0); HEMATOCRIT 45.5 % (42.0-52.0); HEMOGLOBIN 15.7 g/dl (14.0-18.0); LYMPHOCYTES # 0.6 10^3/ul (0.8-2.9); LYMPHOCYTES % 5.1 % (15.0-51.0); MEAN CORPUSCULAR HEMOGLOBIN 29.8 pg (29.0-33.0); MEAN CORPUSCULAR HGB CONC 34.5 g/dl (32.0-37.0); MEAN CORPUSCULAR VOLUME 86.5 fl (82.0-101.0); MEAN PLATELET VOLUME 9.8 fl (7.4-10.4); MONOCYTE # 0.4 10^3/ul (0.3-0.9); NEUTROPHIL # 10.1 10^3/ul (1.6-7.5); NEUTROPHILS % 90.6 % (39.0-77.0); PLATELET COUNT 225 10^3/UL (140-415); POSITIVE DIFF @See below; RED BLOOD COUNT 5.26 10^6/ul (4.70-6.10); RED CELL DISTRIBUTION WIDTH 12.3 % (11.5-14.5)
[2018-01-12] MEDS: ONDANSETRON 4 MG INJ IV (05:46)
[2018-01-12] MEDS: LIDOCAINE/MYLANTA 40 ML BTL PO (05:46)
[2018-01-12 05:52] LABS: ALANINE AMINOTRANSFERASE 66 IU/L (13-69); ALBUMIN 4.8 g/dl (3.3-4.9); ALBUMIN/GLOBULIN RATIO 1.54; ALKALINE PHOSPHATASE 69 IU/L (42-121); ANION GAP 10 (5-13); ASPARTATE AMINO TRANSFERASE 29 IU/L (15-46); BILIRUBIN,INDIRECT 1.5 mg/dl (0-1.1); BILIRUBIN,TOTAL 1.5 mg/dl (0.2-1.3); BLOOD UREA NITROGEN 13 mg/dl (7-20); CALCIUM 9.9 mg/dl (8.4-10.2); CARBON DIOXIDE 28 mmol/L (21-31); CHLORIDE 104 mmol/L (97-110); CREATININE 0.79 mg/dl (0.61-1.24); ETHANOL < 10.0 mg/dl; Estimated GFR > 60 mL/min (>60); GLUCOSE 144 mg/dl (70-220); LIPASE 21 U/L (23-300); SODIUM 142 mmol/L (135-144); TOTAL PROTEIN 7.9 g/dl (6.1-8.1)
[2018-01-12 06:21] LABS: ADD UMIC YES; UR ASCORBIC ACID 20 mg/dL (NEGATIVE); UR BILIRUBIN (Dip) NEGATIVE (NEGATIVE); UR BLOOD (Dip) NEGATIVE (NEGATIVE); UR CLARITY SLIGHTLY CLOUDY (CLEAR); UR COLOR YELLOW (YELLOW); UR GLUCOSE (Dip) NEGATIVE (NEGATIVE); UR KETONES (Dip) 1+ mg/dL (NEGATIVE); UR LEUKOCYTE ESTERASE (Dip) NEGATIVE Leu/ul (NEGATIVE); UR MUCUS MANY /HPF (NONE SEEN); UR NITRITE (Dip) NEGATIVE (NEGATIVE); UR RBC 5 /HPF (0-5); UR SPECIFIC GRAVITY (Dip) 1.026 (1.003-1.030); UR TOTAL PROTEIN (Dip) 2+ mg/dl (NEGATIVE); UR UROBILINOGEN (Dip) NEGATIVE (NEGATIVE); UR WBC 2 /HPF (0-5)
[2018-01-12 06:33] LABS: AMPHETAMINE/METHAMPHETAMINE Negative (NEGATIVE); BARBITURATES Negative (NEGATIVE); BENZODIAZEPINES Negative (NEGATIVE); CANNABINOIDS Positive (NEGATIVE); COCAINE Negative (NEGATIVE); OPIATES Negative (NEGATIVE)
[2018-01-12] MEDS: HALOPERIDOL 5 MG INJ IV (06:39)
== END 2018-01-12 07:25 | disposition home or self-care (01) ==
LOC: E/R 04:45
DX: K29.00 Acute gastritis without bleeding (principal)
CPT/HCPCS: 36415; 80053; 80307; 81001; 83690; 85025; 96374; 96375; 99284-25

== ENCOUNTER 2018-02-16 01:39 | Emergency (ER) | payer BC ==
[2018-02-16] MEDS ORDERED: ONDANSETRON 4 MG INJ IV (02:24)
[2018-02-16] MEDS ORDERED: PANTOPRAZOLE 40 MG INJ IV (02:30)
[2018-02-16] MEDS ORDERED: KETOROLAC 30 MG INJ IV (02:51)
[2018-02-16] MEDS: LIDOCAINE/MYLANTA 40 ML BTL PO (03:04)
[2018-02-16] MEDS: SOD CHLORIDE 0.9% 1,000 ML IV (03:09)
[2018-02-16 03:21] LABS: ADD MAN DIFF? NO
[2018-02-16 03:23] LABS: BASOPHILS % 0.3 % (0.0-2.0); EOSINOPHILS % 0.1 % (0.0-7.0); HEMATOCRIT 50.5 % (42.0-52.0); HEMOGLOBIN 16.9 g/dl (14.0-18.0); LYMPHOCYTES # 1.6 10^3/ul (0.8-2.9); LYMPHOCYTES % 14.7 % (15.0-51.0); MEAN CORPUSCULAR HEMOGLOBIN 28.9 pg (29.0-33.0); MEAN CORPUSCULAR HGB CONC 33.5 g/dl (32.0-37.0); MEAN CORPUSCULAR VOLUME 86.5 fl (82.0-101.0); MEAN PLATELET VOLUME 9.9 fl (7.4-10.4); MONOCYTE # 0.9 10^3/ul (0.3-0.9); MONOCYTES % 7.8 % (0.0-11.0); NEUTROPHIL # 8.5 10^3/ul (1.6-7.5); NEUTROPHILS % 76.6 % (39.0-77.0); PLATELET COUNT 273 10^3/UL (140-415); RED BLOOD COUNT 5.84 10^6/ul (4.70-6.10); RED CELL DISTRIBUTION WIDTH 12.4 % (11.5-14.5)
[2018-02-16 03:23] LABS: WHITE BLOOD COUNT 11.1 10^3/ul (4.8-10.8)
[2018-02-16 03:49] LABS: ALANINE AMINOTRANSFERASE 62 IU/L (13-69); ALBUMIN/GLOBULIN RATIO 1.47; ALKALINE PHOSPHATASE 70 IU/L (42-121); ANION GAP 14 (5-13); ASPARTATE AMINO TRANSFERASE 31 IU/L (15-46); BILIRUBIN,INDIRECT 1.7 mg/dl (0-1.1); BILIRUBIN,TOTAL 1.7 mg/dl (0.2-1.3); BLOOD UREA NITROGEN 14 mg/dl (7-20); CALCIUM 10.1 mg/dl (8.4-10.2); CARBON DIOXIDE 32 mmol/L (21-31); CHLORIDE 100 mmol/L (97-110); CREATININE 0.88 mg/dl (0.61-1.24); Estimated GFR > 60 mL/min (>60); GLUCOSE 110 mg/dl (70-220); LIPASE 645 U/L (23-300); POTASSIUM 3.6 mmol/L (3.5-5.1); SODIUM 146 mmol/L (135-144); TOTAL PROTEIN 8.4 g/dl (6.1-8.1)
== END 2018-02-16 03:04 | disposition left against medical advice (07) ==
LOC: E/R 01:39
DX: R10.13 Epigastric pain (principal)
CPT/HCPCS: 36415; 80053; 83690; 85025; 99283

== ENCOUNTER 2018-02-17 00:38 | Inpatient (IN) | payer BC ==
[2018-02-17 01:32] LABS: ADD MAN DIFF? NO
[2018-02-17 01:35] LABS: WHITE BLOOD COUNT 9.8 10^3/ul (4.8-10.8)
[2018-02-17 01:35] LABS: BASOPHILS % 0.3 % (0.0-2.0); HEMATOCRIT 46.3 % (42.0-52.0); HEMOGLOBIN 16.2 g/dl (14.0-18.0); LYMPHOCYTES # 1.2 10^3/ul (0.8-2.9); LYMPHOCYTES % 12.4 % (15.0-51.0); MEAN CORPUSCULAR HEMOGLOBIN 29.6 pg (29.0-33.0); MEAN CORPUSCULAR VOLUME 84.5 fl (82.0-101.0); MEAN PLATELET VOLUME 9.4 fl (7.4-10.4); MONOCYTE # 0.6 10^3/ul (0.3-0.9); MONOCYTES % 6.5 % (0.0-11.0); NEUTROPHIL # 7.8 10^3/ul (1.6-7.5); NEUTROPHILS % 80.4 % (39.0-77.0); PLATELET COUNT 234 10^3/UL (140-415); RED BLOOD COUNT 5.48 10^6/ul (4.70-6.10); RED CELL DISTRIBUTION WIDTH 12.2 % (11.5-14.5)
[2018-02-17] MEDS: LORAZEPAM 2 MG INJ IV ×2 (01:39→18:53)
[2018-02-17] MEDS: FAMOTIDINE 20 MG INJ IV (01:39)
[2018-02-17] MEDS: ONDANSETRON 4 MG INJ IV ×2 (01:39→05:27)
[2018-02-17] MEDS: SOD CHLORIDE 0.9% 1,000 ML IV ×8 (01:40→22:16)
[2018-02-17] MEDS: LIDOCAINE/MYLANTA 40 ML BTL PO (01:40)
[2018-02-17] MEDS: DICYCLOMINE 20 MG INJ IM (01:49)
[2018-02-17 01:51] LABS: ALANINE AMINOTRANSFERASE 66 IU/L (13-69); ALBUMIN 4.9 g/dl (3.3-4.9); ALBUMIN/GLOBULIN RATIO 1.96; ALKALINE PHOSPHATASE 65 IU/L (42-121); ANION GAP 16 (5-13); ASPARTATE AMINO TRANSFERASE 30 IU/L (15-46); BILIRUBIN,INDIRECT 2.3 mg/dl (0-1.1); BILIRUBIN,TOTAL 2.3 mg/dl (0.2-1.3); BLOOD UREA NITROGEN 14 mg/dl (7-20); CALCIUM 9.9 mg/dl (8.4-10.2); CARBON DIOXIDE 28 mmol/L (21-31); CHLORIDE 98 mmol/L (97-110); CREATININE 0.81 mg/dl (0.61-1.24); Estimated GFR > 60 mL/min (>60); GLUCOSE 126 mg/dl (70-220); LIPASE 894 U/L (23-300); POTASSIUM 3.3 mmol/L (3.5-5.1); SODIUM 142 mmol/L (135-144); TOTAL PROTEIN 7.4 g/dl (6.1-8.1)
[2018-02-17] MEDS ORDERED: ACETAMINOPHEN 325 MG TAB PO ×2 (03:00→03:30)
[2018-02-17] MEDS ORDERED: ONDANSETRON 4 MG INJ IV (03:00)
[2018-02-17] MEDS: HYDROmorphONE 0.5 MG/0.5 ML SYG IV (03:12)
[2018-02-17] MEDS ORDERED: DOCUSATE SODIUM 100 MG CAP PO (03:30)
[2018-02-17] MEDS ORDERED: NACL 0.9% 3 ML SYG IV (03:30)
[2018-02-17] MEDS ORDERED: BISACODYL (EC) 5 MG TAB PO (03:30)
[2018-02-17] MEDS: SOD CHLORIDE 0.9% 100 ML ×2 (03:54→11:34)
[2018-02-17] MEDS: IOHEXOL 300MG/ML 150 ML BTL ×2 (03:54→11:35)
[2018-02-17 05:05] LABS: ETHANOL < 10.0 mg/dl (0-0)
[2018-02-17] MEDS: morphine 2 MG INJ IV ×2 (05:27→22:10)
[2018-02-17] MEDS: PANTOPRAZOLE 40 MG INJ IV ×2 (10:25→18:22)
[2018-02-17] MEDS: POTASSIUM CHLORIDE 50 ML IVPB ×3 (13:47→21:09)
[2018-02-17] MEDS: SUCRALFATE (100 MG/ML) 10ML CUP PO ×3 (14:26→22:09)
[2018-02-17 15:15] LABS: HEMATOCRIT 44.6 % (42.0-52.0)
[2018-02-17 15:31] LABS: LIPASE 1277 U/L (23-300)
[2018-02-17 21:20] LABS: HEMATOCRIT 42.2 % (42.0-52.0); HEMOGLOBIN 14.7 g/dl (14.0-18.0)
[2018-02-17 21:38] LABS: LIPASE 647 U/L (23-300)
[2018-02-18] MEDS: ONDANSETRON 4 MG INJ IV (01:21)
[2018-02-18 01:40] LABS: HEMATOCRIT 44.8 % (42.0-52.0); HEMOGLOBIN 15.2 g/dl (14.0-18.0)
[2018-02-18] MEDS: SOD CHLORIDE 0.9% 1,000 ML IV ×4 (04:15→18:22)
[2018-02-18] MEDS: METOCLOPRAMIDE 10 MG INJ IV (04:15)
[2018-02-18] MEDS: morphine 2 MG INJ IV (04:57)
[2018-02-18] MEDS: PANTOPRAZOLE 40 MG INJ IV ×2 (05:00→17:59)
[2018-02-18 05:17] LABS: ADD MAN DIFF? NO
[2018-02-18 05:22] LABS: BASOPHILS % 0.6 % (0.0-2.0); EOSINOPHILS # 0.1 10^3/ul (0.0-0.5); EOSINOPHILS % 0.8 % (0.0-7.0); HEMATOCRIT 44.2 % (42.0-52.0); HEMOGLOBIN 14.9 g/dl (14.0-18.0); LYMPHOCYTES # 1.7 10^3/ul (0.8-2.9); LYMPHOCYTES % 25.2 % (15.0-51.0); MEAN CORPUSCULAR HEMOGLOBIN 28.8 pg (29.0-33.0); MEAN CORPUSCULAR HGB CONC 33.7 g/dl (32.0-37.0); MEAN CORPUSCULAR VOLUME 85.5 fl (82.0-101.0); MEAN PLATELET VOLUME 9.6 fl (7.4-10.4); MONOCYTE # 0.6 10^3/ul (0.3-0.9); NEUTROPHIL # 4.2 10^3/ul (1.6-7.5); NEUTROPHILS % 63.9 % (39.0-77.0); PLATELET COUNT 229 10^3/UL (140-415); RED BLOOD COUNT 5.17 10^6/ul (4.70-6.10); RED CELL DISTRIBUTION WIDTH 11.9 % (11.5-14.5)
[2018-02-18 05:22] LABS: WHITE BLOOD COUNT 6.6 10^3/ul (4.8-10.8)
[2018-02-18 05:45] LABS: ALANINE AMINOTRANSFERASE 61 IU/L (13-69); ALBUMIN 4.1 g/dl (3.3-4.9); ALBUMIN/GLOBULIN RATIO 1.57; ALKALINE PHOSPHATASE 62 IU/L (42-121); ANION GAP 11 (5-13); ASPARTATE AMINO TRANSFERASE 29 IU/L (15-46); BILIRUBIN,INDIRECT 2.1 mg/dl (0-1.1); BILIRUBIN,TOTAL 2.1 mg/dl (0.2-1.3); BLOOD UREA NITROGEN 10 mg/dl (7-20); CALCIUM 9.2 mg/dl (8.4-10.2); CARBON DIOXIDE 27 mmol/L (21-31); CHLORIDE 102 mmol/L (97-110); CHOL/HDL RATIO 2.5 RATIO; CHOLESTEROL 62 mg/dl (100-200); CREATININE 0.76 mg/dl (0.61-1.24); Estimated GFR > 60 mL/min (>60); GLUCOSE 93 mg/dl (70-220); HDL CHOLESTEROL 24 mg/dl (30-63); LDL CHOLESTEROL,CALCULATED 28 mg/dl; POTASSIUM 3.5 mmol/L (3.5-5.1); SODIUM 140 mmol/L (135-144); TOTAL PROTEIN 6.7 g/dl (6.1-8.1); TRIGLYCERIDES 48 mg/dl (0-149)
[2018-02-18 06:14] LABS: THYROID STIMULATING HORMONE 0.558 MIU/L (0.465-4.680)
[2018-02-18 08:01] LABS: HEMOGLOBIN A1C 4.9 % (0-5.9)
[2018-02-18] MEDS: SUCRALFATE (100 MG/ML) 10ML CUP PO ×3 (08:49→17:59)
[2018-02-18 08:58] LABS: AMPHETAMINE/METHAMPHETAMINE Negative (NEGATIVE); BARBITURATES Negative (NEGATIVE); BENZODIAZEPINES Negative (NEGATIVE); CANNABINOIDS Positive (NEGATIVE); COCAINE Negative (NEGATIVE); OPIATES Positive (NEGATIVE)
[2018-02-18] MEDS: ALPRAZOLAM 0.5 MG TAB PO (13:52)
[2018-02-18 14:04] LABS: LIPASE 129 U/L (23-300)
== END 2018-02-18 21:36 | disposition left against medical advice (07) | DRG 392 ==
LOC: E/R 00:38 → PP2 03:00
DX: R10.13 Epigastric pain (principal); G43.A0 Cyclical vomiting, in migraine, not intractable; E66.9 Obesity, unspecified; K76.0 Fatty (change of) liver, not elsewhere classified; T40.7X5A Adverse effect of cannabis (derivatives), initial encounter; Z68.34 Body mass index [BMI] 34.0-34.9, adult; Y92.019 Unspecified place in single-family (private) house as the place of occurrence of the external cause; F41.9 Anxiety disorder, unspecified; F17.210 Nicotine dependence, cigarettes, uncomplicated; Z87.11 Personal history of peptic ulcer disease; Z90.49 Acquired absence of other specified parts of digestive tract
CPT/HCPCS: 36415; 74177; 74181; 80053; 80061; 80307; 83036; 83690; 83735; 84443; 85014; 85018; 85025; 90686; 96372; 96374; 96375; 99285-25

== ENCOUNTER 2018-05-13 07:38 | Emergency (ER) | payer MEDICAID, BC ==
[2018-05-13 08:15] LABS: ADD MAN DIFF? NO
[2018-05-13 08:24] LABS: WHITE BLOOD COUNT 9.3 10^3/ul (4.8-10.8)
[2018-05-13 08:24] LABS: BASOPHIL # 0.1 10^3/ul (0.0-0.1); BASOPHILS % 0.5 % (0.0-2.0); EOSINOPHILS # 0.1 10^3/ul (0.0-0.5); EOSINOPHILS % 0.6 % (0.0-7.0); HEMOGLOBIN 16.4 g/dl (14.0-18.0); LYMPHOCYTES # 1.4 10^3/ul (0.8-2.9); LYMPHOCYTES % 15.3 % (15.0-51.0); MEAN CORPUSCULAR HEMOGLOBIN 29.5 pg (29.0-33.0); MEAN CORPUSCULAR HGB CONC 33.5 g/dl (32.0-37.0); MEAN CORPUSCULAR VOLUME 88.3 fl (82.0-101.0); MEAN PLATELET VOLUME 9.9 fl (7.4-10.4); MONOCYTE # 0.5 10^3/ul (0.3-0.9); MONOCYTES % 5.5 % (0.0-11.0); NEUTROPHIL # 7.2 10^3/ul (1.6-7.5); NEUTROPHILS % 77.5 % (39.0-77.0); PLATELET COUNT 275 10^3/UL (140-415); RED BLOOD COUNT 5.55 10^6/ul (4.70-6.10); RED CELL DISTRIBUTION WIDTH 12.2 % (11.5-14.5)
[2018-05-13] MEDS: SOD CHLORIDE 0.9% 1,000 ML IV (08:24)
[2018-05-13] MEDS: HYDROmorphONE 1 MG/ML SYG IV (08:24)
[2018-05-13] MEDS: ONDANSETRON 4 MG INJ IV (08:24)
[2018-05-13] MEDS: LIDOCAINE/MYLANTA 40 ML BTL PO ×2 (08:27→12:42)
[2018-05-13 08:38] LABS: ALANINE AMINOTRANSFERASE 76 IU/L (13-69); ALBUMIN 5.4 g/dl (3.3-4.9); ALBUMIN/GLOBULIN RATIO 1.63; ALKALINE PHOSPHATASE 77 IU/L (42-121); AMYLASE 103 U/L (11-123); ANION GAP 17 (5-13); ASPARTATE AMINO TRANSFERASE 35 IU/L (15-46); BILIRUBIN,INDIRECT 1.2 mg/dl (0-1.1); BILIRUBIN,TOTAL 1.2 mg/dl (0.2-1.3); BLOOD UREA NITROGEN 14 mg/dl (7-20); CALCIUM 10.5 mg/dl (8.4-10.2); CARBON DIOXIDE 26 mmol/L (21-31); CHLORIDE 104 mmol/L (97-110); CREATININE 0.88 mg/dl (0.61-1.24); Estimated GFR > 60 mL/min (>60); GLUCOSE 118 mg/dl (70-220); LIPASE 125 U/L (23-300); POTASSIUM 3.9 mmol/L (3.5-5.1); SODIUM 147 mmol/L (135-144); TOTAL PROTEIN 8.7 g/dl (6.1-8.1); TRIGLYCERIDES 62 mg/dl (0-149)
[2018-05-13 08:40] LABS: INR 0.92; PROTIME 12.5 Sec (11.9-14.9)
[2018-05-13 08:41] LABS: PARTIAL THROMBOPLASTIN TIME 31.1 Sec (23.0-35.0)
[2018-05-13 09:05] LABS: ADD UMIC NO; UR ASCORBIC ACID NEGATIVE (NEGATIVE); UR BILIRUBIN (Dip) NEGATIVE (NEGATIVE); UR BLOOD (Dip) NEGATIVE (NEGATIVE); UR CLARITY CLEAR (CLEAR); UR COLOR YELLOW (YELLOW); UR GLUCOSE (Dip) NEGATIVE (NEGATIVE); UR KETONES (Dip) NEGATIVE (NEGATIVE); UR LEUKOCYTE ESTERASE (Dip) NEGATIVE Leu/ul (NEGATIVE); UR NITRITE (Dip) NEGATIVE (NEGATIVE); UR SPECIFIC GRAVITY (Dip) 1.017 (1.003-1.030); UR TOTAL PROTEIN (Dip) NEGATIVE (NEGATIVE); UR UROBILINOGEN (Dip) NEGATIVE (NEGATIVE)
[2018-05-13] MEDS: SOD CHLORIDE 0.9% 100 ML (09:30)
[2018-05-13] MEDS: IOHEXOL 300MG/ML 150 ML BTL (09:30)
== END 2018-05-13 12:50 | disposition home or self-care (01) ==
LOC: E/R 07:38
DX: K27.9 Peptic ulcer, site unspecified, unspecified as acute or chronic, without hemorrhage or perforation (principal); Z87.891 Personal history of nicotine dependence
CPT/HCPCS: 74177; 80053; 81003; 82150; 83690; 84478; 85025; 85610; 85730; 87086; 93005; 96374; 96375; 99285-25

== ENCOUNTER 2018-05-14 05:35 | Inpatient (IN) | payer MEDICAID ==
[2018-05-14] MEDS: SOD CHLORIDE 0.9% 1,000 ML IV ×3 (06:18→21:07)
[2018-05-14] MEDS: HALOPERIDOL 5 MG INJ IV (06:18)
[2018-05-14] MEDS: ONDANSETRON 4 MG INJ IV ×2 (06:18→22:46)
[2018-05-14 06:30] LABS: ADD MAN DIFF? NO
[2018-05-14 06:41] LABS: WHITE BLOOD COUNT 4.9 10^3/ul (4.8-10.8)
[2018-05-14 06:41] LABS: BASOPHILS % 0.4 % (0.0-2.0); EOSINOPHILS # 0.1 10^3/ul (0.0-0.5); EOSINOPHILS % 1.6 % (0.0-7.0); HEMATOCRIT 46.9 % (42.0-52.0); HEMOGLOBIN 15.9 g/dl (14.0-18.0); LYMPHOCYTES # 1.1 10^3/ul (0.8-2.9); LYMPHOCYTES % 22.5 % (15.0-51.0); MEAN CORPUSCULAR HEMOGLOBIN 29.3 pg (29.0-33.0); MEAN CORPUSCULAR HGB CONC 33.9 g/dl (32.0-37.0); MEAN CORPUSCULAR VOLUME 86.5 fl (82.0-101.0); MONOCYTE # 0.4 10^3/ul (0.3-0.9); NEUTROPHIL # 3.3 10^3/ul (1.6-7.5); NEUTROPHILS % 67.1 % (39.0-77.0); PLATELET COUNT 234 10^3/UL (140-415); RED BLOOD COUNT 5.42 10^6/ul (4.70-6.10); RED CELL DISTRIBUTION WIDTH 12.3 % (11.5-14.5)
[2018-05-14 06:57] LABS: ALANINE AMINOTRANSFERASE 81 IU/L (13-69); ALBUMIN 4.8 g/dl (3.3-4.9); ALKALINE PHOSPHATASE 71 IU/L (42-121); ANION GAP 15 (5-13); ASPARTATE AMINO TRANSFERASE 40 IU/L (15-46); BILIRUBIN,INDIRECT 1.9 mg/dl (0-1.1); BILIRUBIN,TOTAL 1.9 mg/dl (0.2-1.3); BLOOD UREA NITROGEN 14 mg/dl (7-20); CALCIUM 10.2 mg/dl (8.4-10.2); CARBON DIOXIDE 27 mmol/L (21-31); CHLORIDE 103 mmol/L (97-110); CREATININE 0.88 mg/dl (0.61-1.24); Estimated GFR > 60 mL/min (>60); GLUCOSE 122 mg/dl (70-220); POTASSIUM 3.8 mmol/L (3.5-5.1); SODIUM 145 mmol/L (135-144); TOTAL PROTEIN 7.8 g/dl (6.1-8.1)
[2018-05-14] MEDS: DIPHENHYDRAMINE 50 MG INJ IV (07:09)
[2018-05-14] MEDS: LORAZEPAM 2 MG INJ IV ×2 (07:09→22:57)
[2018-05-14 07:12] LABS: LIPASE 2691 U/L (23-300)
[2018-05-14 07:52] LABS: ADD UMIC NO; UR ASCORBIC ACID NEGATIVE (NEGATIVE); UR BILIRUBIN (Dip) NEGATIVE (NEGATIVE); UR BLOOD (Dip) NEGATIVE (NEGATIVE); UR CLARITY CLEAR (CLEAR); UR COLOR YELLOW (YELLOW); UR GLUCOSE (Dip) NEGATIVE (NEGATIVE); UR KETONES (Dip) NEGATIVE (NEGATIVE); UR LEUKOCYTE ESTERASE (Dip) NEGATIVE Leu/ul (NEGATIVE); UR NITRITE (Dip) NEGATIVE (NEGATIVE); UR SPECIFIC GRAVITY (Dip) 1.025 (1.003-1.030); UR TOTAL PROTEIN (Dip) NEGATIVE (NEGATIVE); UR UROBILINOGEN (Dip) NEGATIVE (NEGATIVE)
[2018-05-14] MEDS ORDERED: ACETAMINOPHEN 325 MG TAB PO (09:30)
[2018-05-14] MEDS ORDERED: ONDANSETRON 4 MG INJ IV (09:30)
[2018-05-14] MEDS: morphine 2 MG INJ IV ×2 (13:10→22:46)
[2018-05-14 14:06] LABS: RETICULOCYTE COUNT % 1.7 % (0.5-1.5)
[2018-05-14 14:06] LABS: RETICULOCYTE RBC 5.43
[2018-05-14 14:10] LABS: LACTATE DEHYDROGENASE 596 IU/L (313-618)
[2018-05-14] MEDS: FAMOTIDINE 20 MG INJ IV (22:26)
[2018-05-15] MEDS: KETOROLAC 30 MG INJ IV ×3 (00:32→15:45)
[2018-05-15] MEDS: METOCLOPRAMIDE 10 MG INJ IV ×2 (01:27→09:25)
[2018-05-15] MEDS ORDERED: morphine 4 MG/ML VIAL IV (01:51)
[2018-05-15] MEDS: morphine 4 MG/ML VIAL IV (01:57)
[2018-05-15] MEDS: SOD CHLORIDE 0.9% 1,000 ML IV ×2 (04:31→14:01)
[2018-05-15 05:14] LABS: ABNORMAL IP MESSAGE 1; ADD MAN DIFF? NO; BASOPHILS % 0.2 % (0.0-2.0); EOSINOPHILS % 0.2 % (0.0-7.0); HEMOGLOBIN 15.1 g/dl (14.0-18.0); LYMPHOCYTES # 0.5 10^3/ul (0.8-2.9); LYMPHOCYTES % 8.1 % (15.0-51.0); MEAN CORPUSCULAR HGB CONC 33.6 g/dl (32.0-37.0); MEAN CORPUSCULAR VOLUME 86.5 fl (82.0-101.0); MEAN PLATELET VOLUME 9.7 fl (7.4-10.4); MONOCYTE # 0.2 10^3/ul (0.3-0.9); MONOCYTES % 2.6 % (0.0-11.0); NEUTROPHIL # 5.8 10^3/ul (1.6-7.5); NEUTROPHILS % 88.4 % (39.0-77.0); PLATELET COUNT 219 10^3/UL (140-415); POSITIVE DIFF @See below; RED CELL DISTRIBUTION WIDTH 12.2 % (11.5-14.5)
[2018-05-15 05:14] LABS: WHITE BLOOD COUNT 6.5 10^3/ul (4.8-10.8)
[2018-05-15 05:38] LABS: ALANINE AMINOTRANSFERASE 80 IU/L (13-69); ALBUMIN 4.8 g/dl (3.3-4.9); ALKALINE PHOSPHATASE 77 IU/L (42-121); ANION GAP 15 (5-13); ASPARTATE AMINO TRANSFERASE 32 IU/L (15-46); BILIRUBIN,INDIRECT 2.2 mg/dl (0-1.1); BILIRUBIN,TOTAL 2.2 mg/dl (0.2-1.3); BLOOD UREA NITROGEN 10 mg/dl (7-20); CALCIUM 9.7 mg/dl (8.4-10.2); CARBON DIOXIDE 24 mmol/L (21-31); CHLORIDE 103 mmol/L (97-110); CREATININE 0.74 mg/dl (0.61-1.24); Estimated GFR > 60 mL/min (>60); GLUCOSE 132 mg/dl (70-220); LIPASE 133 U/L (23-300); MAGNESIUM 1.7 mg/dl (1.7-2.5); POTASSIUM 3.8 mmol/L (3.5-5.1); SODIUM 142 mmol/L (135-144); TOTAL PROTEIN 7.8 g/dl (6.1-8.1)
[2018-05-15] MEDS: ONDANSETRON 4 MG INJ IV ×2 (05:46→15:43)
[2018-05-15] MEDS: LORAZEPAM 2 MG INJ IV (07:18)
[2018-05-15] MEDS: FAMOTIDINE 20 MG INJ IV (09:22)
[2018-05-15] MEDS: morphine 2 MG INJ IV ×2 (10:50→17:10)
[2018-05-16 10:17] LABS: HAPTOGLOBIN 121 mg/dL (43-212)
== END 2018-05-15 19:30 | disposition home or self-care (01) | DRG 440 ==
LOC: E/R 05:35 → MS1 09:30
DX: K85.90 Acute pancreatitis without necrosis or infection, unspecified (principal); E66.01 Morbid (severe) obesity due to excess calories; K76.0 Fatty (change of) liver, not elsewhere classified; F12.90 Cannabis use, unspecified, uncomplicated; F17.210 Nicotine dependence, cigarettes, uncomplicated; K86.1 Other chronic pancreatitis; R74.8 Abnormal levels of other serum enzymes; Z68.36 Body mass index [BMI] 36.0-36.9, adult; Z90.49 Acquired absence of other specified parts of digestive tract
CPT/HCPCS: 36415; 80053; 81003; 83010; 83615; 83690; 83735; 85025; 85045; 96361; 96374; 96375; 99285-25

== ENCOUNTER 2018-06-27 13:11 | Inpatient (IN) | payer BC ==
[2018-06-27] MEDS: SOD CHLORIDE 0.9% 1,000 ML IV (14:02)
[2018-06-27] MEDS: KETAMINE HCL (50 MG/ML) 1ml syringe IV (14:02)
[2018-06-27] MEDS: ONDANSETRON 4 MG INJ IV ×3 (14:03→19:04)
[2018-06-27 14:16] LABS: ADD MAN DIFF? NO
[2018-06-27 14:20] LABS: BASOPHILS % 0.3 % (0.0-2.0); EOSINOPHILS # 0.1 10^3/ul (0.0-0.5); HEMATOCRIT 47.8 % (42.0-52.0); HEMOGLOBIN 15.9 g/dl (14.0-18.0); LYMPHOCYTES # 1.6 10^3/ul (0.8-2.9); LYMPHOCYTES % 18.3 % (15.0-51.0); MEAN CORPUSCULAR HEMOGLOBIN 28.9 pg (29.0-33.0); MEAN CORPUSCULAR HGB CONC 33.3 g/dl (32.0-37.0); MEAN CORPUSCULAR VOLUME 86.9 fl (82.0-101.0); MONOCYTE # 0.5 10^3/ul (0.3-0.9); MONOCYTES % 5.3 % (0.0-11.0); NEUTROPHIL # 6.6 10^3/ul (1.6-7.5); NEUTROPHILS % 74.8 % (39.0-77.0); PLATELET COUNT 255 10^3/UL (140-415); RED CELL DISTRIBUTION WIDTH 12.1 % (11.5-14.5)
[2018-06-27 14:20] LABS: WHITE BLOOD COUNT 8.9 10^3/ul (4.8-10.8)
[2018-06-27] MEDS: LORAZEPAM 2 MG INJ IV (14:28)
[2018-06-27] MEDS: HALOPERIDOL 5 MG INJ IV (14:39)
[2018-06-27 14:42] LABS: ALANINE AMINOTRANSFERASE 72 IU/L (13-69); ALBUMIN 5.1 g/dl (3.3-4.9); ALBUMIN/GLOBULIN RATIO 1.59; ALKALINE PHOSPHATASE 81 IU/L (42-121); ANION GAP 18 (5-13); ASPARTATE AMINO TRANSFERASE 34 IU/L (15-46); BILIRUBIN,INDIRECT 2.3 mg/dl (0-1.1); BILIRUBIN,TOTAL 2.3 mg/dl (0.2-1.3); BLOOD UREA NITROGEN 14 mg/dl (7-20); CALCIUM 10.3 mg/dl (8.4-10.2); CARBON DIOXIDE 26 mmol/L (21-31); CHLORIDE 104 mmol/L (97-110); CREATININE 0.93 mg/dl (0.61-1.24); Estimated GFR > 60 mL/min (>60); GLUCOSE 104 mg/dl (70-220); LIPASE 237 U/L (23-300); POTASSIUM 3.7 mmol/L (3.5-5.1); SODIUM 148 mmol/L (135-144); TOTAL PROTEIN 8.3 g/dl (6.1-8.1)
[2018-06-27] MEDS: DICYCLOMINE 20 MG INJ IM (14:46)
[2018-06-27] MEDS ORDERED: ACETAMINOPHEN 325 MG TAB PO (15:30)
[2018-06-27] MEDS: METOCLOPRAMIDE 10 MG INJ IV (16:23)
[2018-06-27] MEDS ORDERED: NACL 0.9% 3 ML SYG IV (16:30)
[2018-06-27] MEDS: D5W-0.45 NACL + KCL 20 MEQ 1,000 ML IV (19:02)
[2018-06-27] MEDS: KETOROLAC 15 MG INJ IV (19:04)
[2018-06-27] MEDS: morphine 2 MG INJ IV (21:09)
[2018-06-28] MEDS: KETOROLAC 15 MG INJ IV ×2 (00:17→10:18)
[2018-06-28] MEDS: D5W-0.45 NACL + KCL 20 MEQ 1,000 ML IV ×4 (00:32→20:00)
[2018-06-28] MEDS: ONDANSETRON 4 MG INJ IV ×3 (01:37→11:21)
[2018-06-28] MEDS: morphine 2 MG INJ IV ×5 (02:31→20:03)
[2018-06-28] MEDS: LORAZEPAM 2 MG INJ IV (11:29)
[2018-06-28] MEDS: SENNA TAB PO (11:36)
[2018-06-28] MEDS: DOCUSATE SODIUM 100 MG CAP PO (11:36)
[2018-06-28 13:32] LABS: ADD MAN DIFF? NO
[2018-06-28 13:34] LABS: BASOPHILS % 0.2 % (0.0-2.0); HEMATOCRIT 45.4 % (42.0-52.0); HEMOGLOBIN 15.4 g/dl (14.0-18.0); LYMPHOCYTES % 8.7 % (15.0-51.0); MEAN CORPUSCULAR HEMOGLOBIN 29.2 pg (29.0-33.0); MEAN CORPUSCULAR HGB CONC 33.9 g/dl (32.0-37.0); MONOCYTE # 0.7 10^3/ul (0.3-0.9); MONOCYTES % 5.9 % (0.0-11.0); NEUTROPHILS % 84.9 % (39.0-77.0); PLATELET COUNT 226 10^3/UL (140-415); RED BLOOD COUNT 5.28 10^6/ul (4.70-6.10); RED CELL DISTRIBUTION WIDTH 12.2 % (11.5-14.5)
[2018-06-28 13:34] LABS: WHITE BLOOD COUNT 11.8 10^3/ul (4.8-10.8)
[2018-06-28] MEDS: AL HYDROX/MG HYDROX/SIMETH 30 ML CUP PO (13:46)
[2018-06-28] MEDS: PANTOPRAZOLE (EC) 40 MG TAB PO (13:46)
[2018-06-28] MEDS: SUCRALFATE 1 GM TAB PO ×3 (13:46→20:04)
[2018-06-28] MEDS: LORAZEPAM 1 MG TAB PO (13:48)
[2018-06-28 13:55] LABS: LIPASE 594 U/L (23-300)
[2018-06-28 13:55] LABS: MAGNESIUM 1.8 mg/dl (1.7-2.5)
[2018-06-28 13:56] LABS: ALANINE AMINOTRANSFERASE 56 IU/L (13-69); ALBUMIN 4.6 g/dl (3.3-4.9); ALBUMIN/GLOBULIN RATIO 1.43; ALKALINE PHOSPHATASE 70 IU/L (42-121); ANION GAP 12 (5-13); ASPARTATE AMINO TRANSFERASE 20 IU/L (15-46); BILIRUBIN,INDIRECT 1.9 mg/dl (0-1.1); BILIRUBIN,TOTAL 1.9 mg/dl (0.2-1.3); BLOOD UREA NITROGEN 10 mg/dl (7-20); CARBON DIOXIDE 28 mmol/L (21-31); CHLORIDE 103 mmol/L (97-110); CREATININE 0.84 mg/dl (0.61-1.24); Estimated GFR > 60 mL/min (>60); GLUCOSE 137 mg/dl (70-220); POTASSIUM 3.5 mmol/L (3.5-5.1); SODIUM 143 mmol/L (135-144); TOTAL PROTEIN 7.8 g/dl (6.1-8.1)
[2018-06-29] MEDS: ONDANSETRON 4 MG INJ IV ×4 (01:57→13:43)
[2018-06-29] MEDS: morphine 2 MG INJ IV ×4 (02:01→13:51)
[2018-06-29] MEDS: LORAZEPAM 1 MG TAB PO ×2 (02:58→13:51)
[2018-06-29] MEDS: LORAZEPAM 2 MG INJ IV ×2 (03:17→14:19)
[2018-06-29] MEDS: D5W-0.45 NACL + KCL 20 MEQ 1,000 ML IV (03:47)
[2018-06-29 05:10] LABS: ADD MAN DIFF? NO
[2018-06-29 05:18] LABS: BASOPHILS % 0.2 % (0.0-2.0); EOSINOPHILS % 0.2 % (0.0-7.0); HEMATOCRIT 47.5 % (42.0-52.0); LYMPHOCYTES # 0.8 10^3/ul (0.8-2.9); LYMPHOCYTES % 6.7 % (15.0-51.0); MEAN CORPUSCULAR HGB CONC 33.7 g/dl (32.0-37.0); MEAN CORPUSCULAR VOLUME 86.2 fl (82.0-101.0); MEAN PLATELET VOLUME 10.1 fl (7.4-10.4); MONOCYTE # 0.8 10^3/ul (0.3-0.9); MONOCYTES % 6.7 % (0.0-11.0); NEUTROPHILS % 85.9 % (39.0-77.0); PLATELET COUNT 210 10^3/UL (140-415); RED BLOOD COUNT 5.51 10^6/ul (4.70-6.10); RED CELL DISTRIBUTION WIDTH 12.4 % (11.5-14.5)
[2018-06-29 05:18] LABS: WHITE BLOOD COUNT 11.7 10^3/ul (4.8-10.8)
[2018-06-29] MEDS: PANTOPRAZOLE (EC) 40 MG TAB PO (05:37)
[2018-06-29 06:16] LABS: ALANINE AMINOTRANSFERASE 57 IU/L (13-69); ALBUMIN 4.6 g/dl (3.3-4.9); ALBUMIN/GLOBULIN RATIO 1.53; ALKALINE PHOSPHATASE 67 IU/L (42-121); ANION GAP 11 (5-13); ASPARTATE AMINO TRANSFERASE 24 IU/L (15-46); BILIRUBIN,INDIRECT 2.2 mg/dl (0-1.1); BILIRUBIN,TOTAL 2.2 mg/dl (0.2-1.3); BLOOD UREA NITROGEN 8 mg/dl (7-20); CALCIUM 9.8 mg/dl (8.4-10.2); CARBON DIOXIDE 30 mmol/L (21-31); CHLORIDE 101 mmol/L (97-110); CREATININE 0.85 mg/dl (0.61-1.24); Estimated GFR > 60 mL/min (>60); GLUCOSE 140 mg/dl (70-220); LIPASE 55 U/L (23-300); SODIUM 142 mmol/L (135-144); TOTAL PROTEIN 7.6 g/dl (6.1-8.1)
[2018-06-29] MEDS: METOCLOPRAMIDE 10 MG INJ IV (08:07)
[2018-06-29] MEDS: SUCRALFATE 1 GM TAB PO ×3 (08:57→17:34)
[2018-06-29] MEDS ORDERED: LORAZEPAM 2 MG INJ IV (15:30)
== END 2018-06-29 18:40 | disposition home or self-care (01) | DRG 392 ==
LOC: MS1 06-29 02:48 → FTE 13:11 → MS1 15:16
DX: K29.00 Acute gastritis without bleeding (principal); K86.0 Alcohol-induced chronic pancreatitis; F41.9 Anxiety disorder, unspecified; R11.2 Nausea with vomiting, unspecified; Z90.49 Acquired absence of other specified parts of digestive tract
CPT/HCPCS: 36415; 80053; 83690; 83735; 84100; 85025; 96372; 96374; 96375; 99285-25

== ENCOUNTER 2018-06-30 06:12 | Emergency (ER) | payer BC | END 2018-06-30 09:11 | disposition home or self-care (01) | LOC: E/R 06:12 | DX: Z72.89 Other problems related to lifestyle (principal); Z87.891 Personal history of nicotine dependence | CPT/HCPCS: 99283; Z7502 ==

== ENCOUNTER 2018-09-22 17:21 | Emergency (ER) | payer BC ==
[2018-09-22 17:53] LABS: ADD MAN DIFF? NO
[2018-09-22 17:59] LABS: WHITE BLOOD COUNT 9.7 10^3/ul (4.8-10.8)
[2018-09-22 17:59] LABS: BASOPHILS % 0.2 % (0.0-2.0); EOSINOPHILS % 0.1 % (0.0-7.0); HEMATOCRIT 49.8 % (42.0-52.0); LYMPHOCYTES # 0.9 10^3/ul (0.8-2.9); LYMPHOCYTES % 9.1 % (15.0-51.0); MEAN CORPUSCULAR HEMOGLOBIN 29.1 pg (29.0-33.0); MEAN CORPUSCULAR HGB CONC 34.1 g/dl (32.0-37.0); MEAN CORPUSCULAR VOLUME 85.3 fl (82.0-101.0); MONOCYTE # 0.3 10^3/ul (0.3-0.9); MONOCYTES % 3.3 % (0.0-11.0); NEUTROPHIL # 8.4 10^3/ul (1.6-7.5); NEUTROPHILS % 86.8 % (39.0-77.0); PLATELET COUNT 243 10^3/UL (140-415); RED BLOOD COUNT 5.84 10^6/ul (4.70-6.10); RED CELL DISTRIBUTION WIDTH 12.5 % (11.5-14.5)
[2018-09-22] MEDS: ONDANSETRON 4 MG INJ IV ×2 (18:03→20:15)
[2018-09-22] MEDS: SOD CHLORIDE 0.9% 1,000 ML IV (18:03)
[2018-09-22] MEDS: HYDROmorphONE 1 MG/ML SYG IV ×2 (18:03→20:15)
[2018-09-22] MEDS: LORAZEPAM 2 MG INJ IV (18:03)
[2018-09-22 18:19] LABS: ALANINE AMINOTRANSFERASE 42 IU/L (13-69); ALBUMIN/GLOBULIN RATIO 1.38; ALKALINE PHOSPHATASE 83 IU/L (42-121); AMYLASE 164 U/L (11-123); ANION GAP 15 (5-13); ASPARTATE AMINO TRANSFERASE 27 IU/L (15-46); BILIRUBIN,INDIRECT 1.7 mg/dl (0-1.1); BILIRUBIN,TOTAL 1.7 mg/dl (0.2-1.3); BLOOD UREA NITROGEN 14 mg/dl (7-20); CALCIUM 10.7 mg/dl (8.4-10.2); CARBON DIOXIDE 23 mmol/L (21-31); CHLORIDE 105 mmol/L (97-110); Estimated GFR > 60 mL/min (>60); GLUCOSE 146 mg/dl (70-220); LIPASE 163 U/L (23-300); POTASSIUM 3.9 mmol/L (3.5-5.1); SODIUM 143 mmol/L (135-144); TOTAL PROTEIN 8.6 g/dl (6.1-8.1)
[2018-09-22 18:21] LABS: ETHANOL < 10.0 mg/dl (0-0)
[2018-09-22 18:22] LABS: INR 0.87; PROTIME 11.9 Sec (11.9-14.9); PT RATIO 0.9
[2018-09-22 18:23] LABS: PARTIAL THROMBOPLASTIN TIME 24.3 Sec (23.0-35.0)
[2018-09-22 18:29] LABS: TROPONIN-I < 0.012 ng/ml (0.000-0.120)
[2018-09-22 18:32] LABS: ADD UMIC YES; UR ASCORBIC ACID 40 mg/dL (NEGATIVE); UR BACTERIA FEW /HPF (NONE SEEN); UR BILIRUBIN (Dip) NEGATIVE (NEGATIVE); UR BLOOD (Dip) NEGATIVE (NEGATIVE); UR CLARITY SLIGHTLY CLOUDY (CLEAR); UR COLOR YELLOW (YELLOW); UR GLUCOSE (Dip) NEGATIVE (NEGATIVE); UR KETONES (Dip) 2+ mg/dL (NEGATIVE); UR LEUKOCYTE ESTERASE (Dip) NEGATIVE Leu/ul (NEGATIVE); UR MUCUS MANY /HPF (NONE SEEN); UR NITRITE (Dip) NEGATIVE (NEGATIVE); UR RBC 4 /HPF (0-5); UR SPECIFIC GRAVITY (Dip) 1.029 (1.003-1.030); UR TOTAL PROTEIN (Dip) 1+ mg/dl (NEGATIVE); UR UROBILINOGEN (Dip) NEGATIVE (NEGATIVE); UR WBC 1 /HPF (0-5)
[2018-09-22 18:41] LABS: AMPHETAMINE/METHAMPHETAMINE Negative (NEGATIVE); BARBITURATES Negative (NEGATIVE); BENZODIAZEPINES Negative (NEGATIVE); CANNABINOIDS Positive (NEGATIVE); COCAINE Negative (NEGATIVE); OPIATES Positive (NEGATIVE)
[2018-09-22] MEDS: SOD CHLORIDE 0.9% 100 ML (18:52)
[2018-09-22] MEDS: IOHEXOL 300MG/ML 150 ML BTL (18:52)
== END 2018-09-22 22:29 | disposition home or self-care (01) ==
LOC: E/R 17:21
DX: G43.A0 Cyclical vomiting, in migraine, not intractable (principal); F41.9 Anxiety disorder, unspecified; R10.9 Unspecified abdominal pain; Z87.891 Personal history of nicotine dependence
CPT/HCPCS: 36415; 80053; 80307; 81001; 82150; 83690; 84484; 85025; 85610; 85730; 87086; 96374; 96375; 96376; 99284-25

== ENCOUNTER 2018-09-22 22:46 | Emergency (ER) | payer BC ==
[2018-09-23] MEDS: ONDANSETRON 4 MG INJ IM (00:52)
== END 2018-09-23 01:10 | disposition home or self-care (01) ==
LOC: E/R 22:46
DX: G43.A0 Cyclical vomiting, in migraine, not intractable (principal); F41.9 Anxiety disorder, unspecified; Z87.891 Personal history of nicotine dependence
CPT/HCPCS: 99283; J2405